=== PATIENT | male | born 2000 | race Caucasian/White ===

== ENCOUNTER 2020-07-23 08:46 | Inpatient (IN) | payer BC ==
[2020-07-23] MEDS ORDERED: ONDANSETRON 4 MG TAB.RAPDIS PO ONE (09:06)
[2020-07-23] MEDS ORDERED: ACETAMINOPHEN 325 MG TABLET PO ONE (09:06)
[2020-07-23] MEDS ORDERED: ONDANSETRON HCL INJ/PF 4 MG/2 ML SDV IV ONE (09:21)
[2020-07-23] MEDS ORDERED: MORPHINE SULFATE 10 MG/ML INJ IV ONE ×2 (09:21→11:09)
[2020-07-23] MEDS ORDERED: NORMAL SALINE 1000 ML 1,000 ML IV ONE (09:21)
[2020-07-23] MEDS ORDERED: PIPERACILLIN/TAZOBACTAM 3.375 GM VIAL IV ONE (09:22)
[2020-07-23 09:47] LABS: HEMATOCRIT 36.6 % (37.9-51.0); HEMOGLOBIN 13.5 g/dL (13.5-17.0); MEAN CORPUSCULAR HGB CONC 36.8 g/dL (32.0-36.0); MEAN CORPUSCULAR VOLUME 87 fl (80-97); PLATELET COUNT 159 10^3/uL (150-450); RED BLOOD COUNT 4.21 10^6/uL (4.35-5.55); RED CELL DISTRIBUTION WIDTH 12.1 % (11.5-14.0)
[2020-07-23 10:03] LABS: ALBUMIN 4.2 g/dL (3.5-5.0); ALKALINE PHOSPHATASE 100 U/L (38-126); ANION GAP 12 (5-19); ASPARTATE AMINO TRANSFERASE 20 U/L (17-59); BILIRUBIN,DIRECT 0.6 mg/dL (0.0-0.4); BILIRUBIN,TOTAL 2.7 mg/dL (0.2-1.3); BLOOD UREA NITROGEN 15 mg/dL (7-20); CALCIUM 8.6 mg/dL (8.4-10.2); CARBON DIOXIDE 25 mmol/L (22-30); CHLORIDE 91 mmol/L (98-107); GLUCOSE 145 mg/dL (75-110); POTASSIUM 3.3 mmol/L (3.6-5.0)
[2020-07-23] MEDS ORDERED: RINGERS SOLUTION,LACTATED 1,000 ML IV ONE (10:08)
--- NOTE | 2020-07-23 10:08 | ER Document Report ---
Entered by BOSSMAN GARNER SCRIBE 07/23/20920 Acting as scribe for:ANTONIO PHILIP MD ED GI/ - General Chief Complaint: Nausea/Vomiting Stated Complaint: NAUSEA,VOMITING,DIARRHEA Time Seen by Provider: 07/23/20 09:08 Mode of Arrival: Wheelchair Information source: Patient Notes: This 20 year old male patient with no significant past medical or surgical history presents to the ED today with complaints of abdominal pain that started x2 days ago. Patient states that the pain initially started in the epigastrium and is now in the RLQ. He describes the pain as a "nonstop intense achy pulling" sensation and 5/5 in severity. He reports that the nausea and vomiting started Tuesday night and the diarrhea started yesterday. He also notes a fever. Per nursing, patient's father tested positive for COVID today and x3 other family members with fever and cough were tested yesterday with results pending. - Related Data Allergies/Adverse Reactions: No Known Allergies Allergy (Unverified 07/23/20 09:07) Past Medical History - General Information source: Patient - Social History Smoking Status: Never Smoker Cigarette use (# per day): No Chew tobacco use (# tins/day): No Smoking Education Provided: No Frequency of alcohol use: Weekends Drug Abuse: None Occupation: EMT with [employer] Lives with: Family Family History: Reviewed & Not Pertinent Patient has homicidal ideation: No - Medical History Medical History: Negative Surgical Hx: Negative Review of Systems - Review of Systems Constitutional: See HPI, Fever EENT: No symptoms reported Cardiovascular: No symptoms reported Respiratory: No symptoms reported Gastrointestinal: See HPI, Abdominal pain, Diarrhea, Nausea, Vomiting Genitourinary: No symptoms reported Male Genitourinary: No symptoms reported Musculoskeletal: No symptoms reported Skin: No symptoms reported Hematologic/Lymphatic: No symptoms reported Neurological/Psychological: No symptoms reported -: Yes All other systems reviewed and negative Physical Exam - Vital signs Vitals: Temp Pulse Resp BP Pulse Ox 100.4 F 120 H 16 127/66 H 96 07/23/20 08:49 07/23/20 08:49 07/23/20 08:49 07/23/20 08:49 07/23/20 08:49 - General General appearance: Alert - HEENT Head: Normocephalic, Atraumatic Eyes: Normal Pupils: PERRL - Respiratory Respiratory status: No respiratory distress Chest status: Nontender Breath sounds: Normal Chest palpation: Normal - Cardiovascular Rhythm: Regular Heart sounds: Normal auscultation Murmur: No - Abdominal Inspection: Normal Distension: No distension Bowel sounds: Hypoactive Tenderness: Tender - Tenderness to palpation of the RLQ. Palpating the LLQ exacerbates the pain in the RLQ., Guarding, Rebound Organomegaly: No organomegaly - Back Back: Normal, Nontender - Extremities General upper extremity: Normal inspection General lower extremity: Normal inspection. No: Edema - Neurological Neuro grossly intact: Yes Orientation: AAOx4 [place] Coma Scale Eye Opening: Spontaneous Tammie Coma Scale Verbal: Oriented Tammie Coma Scale Motor: Obeys Commands [place] Coma Scale Total: 15 - Psychological Associated symptoms: Normal affect, Normal mood - Skin Skin Temperature: Warm Skin Moisture: Dry Skin Color: Normal Course - Re-evaluation Re-evalutation: 07/23/20 12:54 The patient was evaluated during the global COVID-19 pandemic and that diagnosis was suspected/considered upon their initial presentation. Their evaluation, treatment and testing was consistent with current guidelines for patients who present with complaints or symptoms that may be related to COVID-19. - Vital Signs Vital signs: Temp Pulse Resp BP Pulse Ox 100.4 F 120 H 16 127/66 H 96 07/23/20 08:49 07/23/20 08:49 07/23/20 08:49 07/23/20 08:49 07/23/20 08:49 - Laboratory Results Result Diagrams: 07/23/20 09:22 07/23/20 09:22 Laboratory Results Interpreted: 07/23/20 07/23/20 09:22 09:22 WBC 1.5 L* RBC 4.21 L Hct 36.6 L MCHC 36.8 H Band Neutrophils % 2 L Monocytes % (Manual) 2 L Abs Neuts (Manual) 1.2 L Abs Lymphs (Manual) 0.3 L Abs Monocytes (Manual) 0.0 L Sodium 128.4 L Potassium 3.3 L Chloride 91 L Glucose 145 H Total Bilirubin 2.7 H Direct Bilirubin 0.6 H Critical Laboratory Results Reviewed: No Critical Results - Radiology Results Radiology Results Interpreted: 07/23/20 14:33 Acute appendicitis Critical Radiology Results Reviewed: Yes Attending or Supervising Physician who Reviewed Radiology: ANTONIO PHILIP - Consults Dr. Jenkins Time consulted: 14:30 Consulted provider: will come to ER Discharge - Discharge Clinical Impression: Appendicitis Qualifiers: Appendicitis type: acute appendicitis Acute appendicitis type: with localized peritonitis Appendicitis gangrene presence: unspecified whether gangrene present Appendicitis perforation presence: unspecified whether perforation present Appendicitis abscess presence: unspecified whether abscess present Qualified Code(s): K35.30 - Acute appendicitis with localized peritonitis, without perforation or gangrene Condition: Stable Disposition: ADMITTED INPATIENT Admitting Provider: Surgicalist Unit Admitted: OR I personally performed the services described in the documentation, reviewed and edited the documentation which was dictated to the scribe in my presence, and it accurately records my words and actions.
[2020-07-23 10:41] LABS: WHITE BLOOD COUNT 1.5 10^3/uL (4.0-10.5)
[2020-07-23 10:48] LABS: ABSOLUTE LYMPHOCYTES# (MANUAL) 0.3 10^3/uL (0.5-4.7); BAND NEUTROPHILS % (MANUAL) 2 % (3-5); BASOPHILS % (MANUAL) 0 % (0-2); EOSINOPHILS % (MANUAL) 2 % (0-6); LYMPHOCYTES % (MANUAL) 18 % (13-45); MONOCYTES % (MANUAL) 2 % (3-13); NUCLEATED RED BLOOD CELLS 2 /100 WBC (0); SEGMENTED NEUTROPHILS % (MAN) 76 % (42-78); TOTAL CELLS COUNTED 50
[2020-07-23 10:49] LABS: PLATELET COMMENT ADEQUATE; PLATELET GIANT PRESENT; PLATELET LARGE PRESENT; RBC MORPHOLOGY COMMENT NORMO-CYTIC/CHROMIC
[2020-07-23 13:37] LABS: PATH REVIEW PATHOLOGIST REVIEWED
[2020-07-23] MEDS ORDERED: NEOSTIGMINE METHYLSULFATE 10 MG/10 ML VIAL ONE (14:26)
[2020-07-23] MEDS ORDERED: PHENYLEPHRINE HCL INJ/PF 10 MG/1 ML SDV ONE (14:26)
[2020-07-23] MEDS ORDERED: SUCCINYLCHOLINE CHLORIDE INJ 200 MG/10 ML VIAL ONE (14:26)
[2020-07-23] MEDS ORDERED: ONDANSETRON HCL INJ/PF 4 MG/2 ML SDV ONE (14:26)
[2020-07-23] MEDS ORDERED: DEXAMETHASONE SOD PHOSPHATE INJ 4 MG/1 ML VIAL ONE (14:26)
[2020-07-23] MEDS ORDERED: ROCURONIUM BROMIDE INJ 50 MG/5 ML VIAL IV ONE (14:26)
[2020-07-23] MEDS ORDERED: GLYCOPYRROLATE 1 MG/5 ML VIAL ONE (14:26)
--- NOTE | 2020-07-23 14:44 | RADIOLOGY REPORT (SQ) ---
EXAM DESCRIPTION: CT ABD/PELVIS WITH IV ORAL IMAGES COMPLETED DATE/TIME: 07/23/2020 2:33 pm REASON FOR STUDY: RLQ abd pain,Covid, neutropenia COMPARISON: None. TECHNIQUE: CT scan of the abdomen and pelvis performed using helical scanning technique with dynamic intravenous contrast injection. No oral contrast. Images reviewed with lung, soft tissue, and bone windows. Reconstructed coronal and sagittal MPR images reviewed. Delayed images for evaluation of the urinary system also acquired. All images stored on PACS. All CT scanners at this facility use dose modulation, iterative reconstruction, and/or weight based d osing when appropriate to reduce radiation dose to as low as reasonably achievable (ALARA). [facility]: Dose Right [facility]: CareDose [facility]: Dose Right [facility]: Teradose 4D [facility]: Swipely CONTRAST TYPE AND DOSE: contrast/concentration: Isovue 350.00 mmol/ml; Total Contrast Delivered: 83. 0 ml; Total Saline Delivered: 63.8 ml RENAL FUNCTION: BUN 15, creatinine 0.91 RADIATION DOSE: CT Rad equipment meets quality standard of care and radiation dose reduction techniq ues were employed. CTDIvol: 5.6 - 7.3 mGy. DLP: 729 mGy-cm.. LIMITATIONS: None. FINDINGS: LOWER CHEST: Basilar airspace disease most likely atelectasis. LIVER: Mild nonspecific periportal edema. No other significant findings in the liver. SPLEEN: Normal size. No focal lesions. PANCREAS: No masses. No significant calcifications. No adjacent inflammation or peripancreatic fluid collections. Pancreatic duct not dilated. GALLBLADDER: Large gallstone. Possibly pericholecystic edema. Ultrasound is recommended for correla tion at some point. ADRENAL GLANDS: No significant masses or asymmetry. RIGHT KIDNEY AND URETER: No solid masses. Small right renal cyst. No significant calcifications. No hydronephrosis or hydroureter. LEFT KIDNEY AND URETER: No solid masses. No significant calcifications. No hydronephrosis or hydr oureter. AORTA AND VESSELS: No aneurysm. No dissection. Renal arteries, SMA, celiac without stenosis. RETROPERITONEUM: No retroperitoneal adenopathy, hemorrhage or masses. BOWEL AND PERITONEAL CAVITY: Mild distal small bowel wall thickening most likely related to what appe ars to be acute pancreatitis. The small bowel wall thickening is most likely reactive. Slight thick ening of the cecal wall is also noted. APPENDIX: Dilated appendix with periappendiceal inflammatory changes. Findings are consistent with a ppendicitis. Probable appendicolith at the base of the appendix. PELVIS: Free fluid the pelvis. ABDOMINAL WALL: No masses. No hernias. BONES: No significant or acute findings. OTHER: No other significant finding. IMPRESSION: Probable acute appendicitis with markedly dilated appendix and surrounding inflammatory change. Probable reactive distal small bowel wall thickening and cecal wall thickening. Probable gallstone although gallbladder wall thickening or pericholecystic edema cannot be excluded. Correlation with ultrasound is recommended. Mild periportal edema etiology of this is uncertain. Again ultrasound correlation is recommended. TECHNICAL DOCUMENTATION: JOB ID: [id number] Quality ID # [id number]: Final reports with documentation of one or more dose reduction techniques (e.g., Au tomated exposure control, adjustment of the mA and/or kV according to patient size, use of iterative reconstruction technique) 2010 [employer]- All Rights Reserved Reading location - IP/workstation name: [email or web address]
[2020-07-23] MEDS ORDERED: CEFOXITIN INJ 2 GM VIAL IV STA (15:20)
--- NOTE | 2020-07-23 15:20 | PDOC H&P ---
History of Present Illness Admission Date/PCP: 07/23/20 14:41 History of Present Illness: KSENIA SAMAYOA is a 20 year old male, healthy, with a history of epigastric pain for the past 4 days which then shifted to the middle lower abdomen the right lower quadrant. Intense nausea, anorexia, no fever, normal bowel function and urination. A CT scan abdomen pelvis has been done which reveals an enlarged inflamed appendix with periappendiceal inflammation. Social History Lives with: Family Smoking Status: Never Smoker Electronic Cigarette use?: No Family History Family History: Reviewed & Not Pertinent Parental Family History Reviewed: No Children Family History Reviewed: No Sibling(s) Family History Reviewed.: No Medication/Allergy Allergies/Adverse Reactions: No Known Allergies Allergy (Unverified 07/23/20 09:07) Physical Exam Vital Signs: Temp Pulse Resp BP Pulse Ox 100.4 F 120 H 16 127/66 H 96 07/23/20 08:49 07/23/20 08:49 07/23/20 08:49 07/23/20 08:49 07/23/20 08:49 Intake & Output 07/22/20 07/23/20 07/24/20 06:59 06:59 06:59 Intake Total 1999 Balance 1999 Weight 72.575 kg General appearance: PRESENT: no acute distress, thin Eye exam: PRESENT: EOMI Mouth exam: PRESENT: neck supple Neck exam: PRESENT: full ROM Respiratory exam: PRESENT: clear to auscultation tejinder Cardiovascular exam: PRESENT: RRR GI/Abdominal exam: PRESENT: soft, tenderness - The lower middle and right lower quadrant with rebound and guarding Rectal exam: PRESENT: deferred Extremities exam: PRESENT: full ROM Musculoskeletal exam: PRESENT: full ROM Neurological exam: PRESENT: alert, awake, CN II-XII grossly intact Skin exam: PRESENT: warm Results Laboratory Results: 07/23/20 09:22 07/23/20 09:22 07/23/20 07/23/20 09:22 09:22 WBC 1.5 L* RBC 4.21 L Hgb 13.5 Hct 36.6 L MCV 87 MCH 32.0 MCHC 36.8 H RDW 12.1 Plt Count 159 Seg Neutrophils % Not Reportable Sodium 128.4 L Potassium 3.3 L Chloride 91 L Carbon Dioxide 25 Anion Gap 12 BUN 15 Creatinine 0.91 Est GFR ( Amer) > 60 Glucose 145 H Calcium 8.6 Total Bilirubin 2.7 H AST 20 Alkaline Phosphatase 100 Total Protein 7.0 Albumin 4.2 Impressions: Abdomen/Pelvis CT 07/23/20 11:20 IMPRESSION: Probable acute appendicitis with markedly dilated appendix and surrounding inflammatory change. Probable reactive distal small bowel wall thickening and cecal wall thickening. Probable gallstone although gallbladder wall thickening or pericholecystic edema cannot be excluded. Correlation with ultrasound is recommended. Mild periportal edema etiology of this is uncertain. Again ultrasound correlation is recommended. Assessment & Plan - Diagnosis (1) Appendicitis Qualifiers: Appendicitis type: acute appendicitis Acute appendicitis type: with localized peritonitis Appendicitis gangrene presence: without gangrene Appendicitis perforation presence: without perforation Appendicitis abscess presence: without abscess Qualified Code(s): K35.30 - Acute appendicitis with localized peritonitis, without perforation or gangrene - Time Anticipated Discharge Disposition: Home, Self Care Anticipated Discharge Timeframe: within 48 hours - Plan Summary Plan Summary: Assessment: Right lower quadrant pain The scan abdomen pelvis significant for enlarged appendix with periappendiceal fluid visible acute appendicitis without perforation Low white blood cell count 1.5S with possible viral infection The patient reports that both father and mother have COVID-19 and both are home and not very secretory disease Plan: N.p.o. IV fluids Mefoxin 2 g IV piggyback now Stat COVID-19 rapid test Laparoscopic appendectomy possible open. The procedure, risks, benefits, complications, alternatives, explained to the patient including the possibility of bowel injury, infection, and bleeding has been explained to the patient, he understands all the above, his questions were answered to his satisfaction, and he decides to proceed.
[2020-07-23] MEDS ORDERED: DEXTROSE 40% GEL 15 GM TUBE PO PRN ×2 (15:21)
[2020-07-23] MEDS ORDERED: DEXTROSE 50%-WATER 25 GM/50 ML DISP.SYRIN IV PRN ×2 (15:21)
[2020-07-23] MEDS ORDERED: GLUCAGON,HUMAN RECOMB 1 MG INJ SUBCUT PRN (15:21)
[2020-07-23] MEDS ORDERED: BUPIVACAINE HCL 0.5%-EPI 1:200000 INJ/PF 30 ML VIAL ONE (15:24)
[2020-07-23] MEDS ORDERED: MIDAZOLAM 2 MG/2 ML INJ ONE (15:26)
[2020-07-23] MEDS ORDERED: FENTANYL CITRATE INJ/PF 250 MCG/5 ML AMPULE ONE (15:26)
[2020-07-23] MEDS ORDERED: HYDROMORPHONE HCL INJ/PF 2 MG/ML AMPULE ONE (15:27)
[2020-07-23] MEDS ORDERED: PROPOFOL INJ 200 MG/20 ML VIAL IV ONE (15:27)
[2020-07-23] MEDS ORDERED: DIPHENHYDRAMINE HCL 50 MG/ML VIAL IV PRN (16:41)
[2020-07-23] MEDS ORDERED: MORPHINE SULFATE 10 MG/ML INJ IV PRN (16:41)
[2020-07-23] MEDS ORDERED: FENTANYL CITRATE INJ/PF 100 MCG/2 ML AMPUL IV PRN ×3 (16:41)
[2020-07-23] MEDS ORDERED: MEPERIDINE HCL/PF INJ 25 MG/1 ML DISP.SYRIN IV PRN (16:41)
[2020-07-23] MEDS ORDERED: PROMETHAZINE HCL INJ 25 MG/1 ML VIAL IV PRN (16:41)
--- NOTE | 2020-07-23 17:39 | Operative Report ---
Operative Report DATE OF SURGERY: 07/23/20 PREOPERATIVE DIAGNOSIS: acute appendicitis POSTOPERATIVE DIAGNOSIS: Acute perforated appendicitis OPERATION: Laparoscopic appendectomy SURGEON: RAQUEL FLORES ANESTHESIA: GA - 10 mL 1% lidocaine with epinephrine TISSUE REMOVED OR ALTERED: Appendix with small sleeve of the cecum COMPLICATIONS: None ESTIMATED BLOOD LOSS: Negligible INTRAOPERATIVE FINDINGS: Acute perforated appendicitis with spillage of pus in the lower abdomen PROCEDURE: The procedure was done in the operating room. The patient was placed in a supine position, general anesthesia induced by endotracheal intubation, Baker catheter was inserted, the abdomen was prepped and draped in usual fashion. An incision was made just above the umbilicus with a #15 blade, the skin was tented with towel clips and a 5 mm port with Optiview adapter and scope were inserted through the abdominal wall into the peritoneal cavity. After they CO2 pneumoperitoneum was obtained, under direct visualization a 5 mm report was inserted in the right lateral quadrant of the abdomen following skin incision. The scope was removed from the umbilical port and inserted into the right side port. The 5 mm umbilical port was removed and replaced with a 12 mm port, while the 5 mm port was inserted in left lower quadrant of the abdomen following skin incision. The patient was placed in steep Trendelenburg position with the right side elevated. The appendix was then identified by tracing the anterior tenia of the cecum, the appendix was then found inflamed, covered with fibrinous material, and perforated due to the presence of purulent material seen in the pelvis and around the appendix. The appendix was elevated, and stretched. The mesentery of the appendix was divided with the LigaSure. The appendix was found to be [non-perforated]. The appendix was stapled at the base with an Endo TARSHA stapler, extracted from the peritoneal cavity with an Endobag through the umbilical port. The pneumoperitoneum was then re-established, the stapled line was examined and found to be intact. The right lower quadrant was then irrigated with normal saline until clear. A 19 mm Arabic round Claudio drain was inserted through the umbilical port and extracted from the left lower quadrant abdominal port; it was placed in the right lower quadrant. The drain was then secured to the skin with a 2-0 nylon suture. The umbilical fascial defect was closed with a [id number] 0 Vicryl suture, placed with a fascia closure device under direct visualization and left untied. All instruments were removed, the pneumoperitoneum was released, and all ports were removed. The umbilical fascial defect was closed with the previously placed [id number] 0 Vicryl suture, all skin incisions were closed with a 4-0 PDS running subcuticular suture, and covered with Dermabond. The patient tolerated the procedure well, was extubated, and transferred to the recovery room in satisfactory conditions.
[2020-07-23] MEDS ORDERED: PIPERACILLIN/TAZOBACTAM 3.375 GM VIAL IV SCH (18:00)
--- NOTE | 2020-07-23 18:32 | RADIOLOGY REPORT (SQ) ---
EXAM DESCRIPTION: CHEST SINGLE VIEW IMAGES COMPLETED DATE/TIME: 07/23/2020 6:17 pm REASON FOR STUDY: Covid positive patient, s/p appendectomy COMPARISON: None. EXAM PARAMETERS: NUMBER OF VIEWS: One view. TECHNIQUE: Single frontal radiographic view of the chest acquired. RADIATION DOSE: NA LIMITATIONS: None. FINDINGS: LUNGS AND PLEURA: No opacities, masses or pneumothorax. No pleural effusion. MEDIASTINUM AND HILAR STRUCTURES: No masses. Contour normal. HEART AND VASCULAR STRUCTURES: Heart normal in size. Normal vasculature. BONES: No acute findings. HARDWARE: None in the chest. OTHER: No other significant finding. IMPRESSION: NO ACUTE RADIOGRAPHIC FINDING IN THE CHEST. TECHNICAL DOCUMENTATION: JOB ID: [id number] 2010 [employer]- All Rights Reserved Reading location - IP/workstation name: [email or web address]
--- NOTE | 2020-07-23 20:44 | PDOC CONSULTATION ---
Consultation Consult Date: 07/23/20 Attending physician:: RAQUEL FLORES Provider Consulted: MICHAEL LOCKWOOD Consult reason:: COVID + History of Present Illness Admission Date/PCP: 07/23/20 14:41 Patient complains of: Abdominal pain History of Present Illness: KSENIA COFFMAN is a 20 year old male without significant past medical history who presented to the emergency department today with complaint of progressively worsening right lower quadrant abdominal pain, nausea, vomiting, and inability to tolerate oral fluids that has progressively worsened over the last 4 days. The patient notes that he has also had suprapubic abdominal discomfort with difficulty emptying her bladder. Patient is now s/p laparoscopic appendectomy by Dr. Flores. The hospitalist team was consulted for management of his COVID. Past Medical History Cardiac Medical History: Reports: None Pulmonary Medical History: Reports: None EENT Medical History: Reports: None Neurological Medical History: Reports: None Endocrine Medical History: Reports: None Renal/ Medical History: Reports: None Malignancy Medical History: Reports: None GI Medical History: Reports: None Musculoskeltal Medical History: Reports: None Skin Medical History: Reports: None Psychiatric Medical History: Reports: None Traumatic Medical History: Reports: None Hematology: Reports: None Infectious Medical History: Reports: None Past Surgical History Past Surgical History: Reports: None Social History Information Source: Patient Lives with: Family Smoking Status: Never Smoker Electronic Cigarette use?: No Frequency of Alcohol Use: Occasional Hx Recreational Drug Use: No Hx Prescription Drug Abuse: No - Advance Directive Resuscitation Status: Full Code Surrogate healthcare decision maker:: The patient's mother, Eboni Coffman. Family History Family History: Reviewed & Not Pertinent, Other - Lupus Parental Family History Reviewed: Yes Children Family History Reviewed: NA Sibling(s) Family History Reviewed.: No Medication/Allergy Allergies/Adverse Reactions: No Known Allergies Allergy (Unverified 07/23/20 09:07) Review of Systems Constitutional: PRESENT: anorexia, fatigue. ABSENT: chills, fever(s), headache(s), weight gain, weight loss Eyes: ABSENT: visual disturbances Ears: ABSENT: hearing changes Cardiovascular: ABSENT: chest pain, dyspnea on exertion, edema, orthropnea, palpitations Respiratory: PRESENT: cough. ABSENT: hemoptysis Gastrointestinal: PRESENT: as per HPI, abdominal pain, nausea, vomiting. ABSENT: constipation, diarrhea, hematemesis, hematochezia Genitourinary: ABSENT: dysuria, hematuria Musculoskeletal: ABSENT: joint swelling Integumentary: ABSENT: rash, wounds Neurological: ABSENT: abnormal gait, abnormal speech, confusion, dizziness, focal weakness, syncope Psychiatric: ABSENT: anxiety, depression, homidical ideation, suicidal ideation Endocrine: ABSENT: cold intolerance, heat intolerance, polydipsia, polyuria Hematologic/Lymphatic: ABSENT: easy bleeding, easy bruising Physical Exam Vital Signs: Temp Pulse Resp BP Pulse Ox 98.9 F 104 H 14 106/66 97 07/23/20 18:30 07/23/20 18:30 07/23/20 18:30 07/23/20 18:30 07/23/20 18:30 Intake & Output 07/22/20 07/23/20 07/24/20 06:59 06:59 06:59 Intake Total 4000 Output Total 85 Balance 3915 Weight 72.575 kg General appearance: PRESENT: no acute distress, cooperative, well-developed, well-nourished Head exam: PRESENT: atraumatic, normocephalic Eye exam: PRESENT: conjunctiva pink, EOMI, PERRLA. ABSENT: scleral icterus Mouth exam: PRESENT: moist, tongue midline Neck exam: ABSENT: carotid bruit, JVD, lymphadenopathy, thyromegaly Respiratory exam: PRESENT: clear to auscultation tejinder, symmetrical, unlabored, other - room air. ABSENT: rales, rhonchi, wheezes Cardiovascular exam: PRESENT: RRR. ABSENT: diastolic murmur, rubs, systolic murmur Pulses: PRESENT: normal dorsalis pedis pul Vascular exam: PRESENT: normal capillary refill GI/Abdominal exam: PRESENT: normal bowel sounds, soft, tenderness. ABSENT: distended, guarding, mass, organolmegaly, rebound Rectal exam: PRESENT: deferred Extremities exam: PRESENT: full ROM. ABSENT: calf tenderness, clubbing, pedal edema Neurological exam: PRESENT: alert, awake, oriented to person, oriented to place, oriented to time, oriented to situation, CN II-XII grossly intact. ABSENT: motor sensory deficit Psychiatric exam: PRESENT: appropriate affect, normal mood. ABSENT: homicidal ideation, suicidal ideation Skin exam: PRESENT: dry, intact, pallor, warm. ABSENT: cyanosis, rash Results Laboratory Results: 07/23/20 09:22 07/23/20 09:22 07/23/20 07/23/20 09:22 09:22 WBC 1.5 L* RBC 4.21 L Hgb 13.5 Hct 36.6 L MCV 87 MCH 32.0 MCHC 36.8 H RDW 12.1 Plt Count 159 Seg Neutrophils % Not Reportable Sodium 128.4 L Potassium 3.3 L Chloride 91 L Carbon Dioxide 25 Anion Gap 12 BUN 15 Creatinine 0.91 Est GFR ( Amer) > 60 Glucose 145 H Calcium 8.6 Total Bilirubin 2.7 H AST 20 Alkaline Phosphatase 100 Total Protein 7.0 Albumin 4.2 Impressions: Abdomen/Pelvis CT 07/23/20 11:20 IMPRESSION: Probable acute appendicitis with markedly dilated appendix and surrounding inflammatory change. Probable reactive distal small bowel wall thickening and cecal wall thickening. Probable gallstone although gallbladder wall thickening or pericholecystic edema cannot be excluded. Correlation with ultrasound is recommended. Mild periportal edema etiology of this is uncertain. Again ultrasound correlat ion is recommended. Chest X-Ray 07/23/20 17:48 IMPRESSION: NO ACUTE RADIOGRAPHIC FINDING IN THE CHEST. Assessment and Plan - Diagnosis (1) COVID-19 Is this a current diagnosis for this admission?: Yes Plan: Currently asymptomatic. COVID positive D-dimer, ferritin, CRP, LDH not checked as all will be elevated in setting of acute appendicitis. Continue DVT prophylaxis Lovenox as was initiated by surgery. Provide supplemental oxygen as needed maintain saturations greater than 89%. As needed nebulizer treatments. Once tolerating oral medications, will utilize [facility]+ protocol for Ivermectin, zinc, vitamin D, vitamin C, and melatonin supplementation. Hold on steroids r/t appendicitis. Encourage pulmonary toilet. Isolation precautions. (2) Hyponatremia Is this a current diagnosis for this admission?: Yes Plan: Likely secondary to dehydration. Continue IV fluids. Follow-up chemistry. (3) Hypokalemia Is this a current diagnosis for this admission?: Yes Plan: Secondary to poor oral intake and GI losses. IV replacement. Follow-up chemistry. (4) Hyperglycemia Is this a current diagnosis for this admission?: Yes Plan: Unclear etiology; patient states that he had been n.p.o. for several hours with minimal intake earlier this morning. Possibly related to acute infectious process. A1c with a.m. labs. (5) Sepsis Qualifiers: Sepsis type: sepsis due to unspecified organism Severe sepsis shock status: without septic shock Is this a current diagnosis for this admission?: Yes Plan: Multifactorial secondary to acute appendicitis and COVID-19. Sepsis, present on arrival, evidenced by fever, tachycardia, tachypnea, leuko penia, liver dysfunction with elevated bilirubin, and poor capillary refill/mottled appearance. Lactic acid pending. Patient has already received IV fluid resuscitation by ED provider. Blood cultures pending. Continue IV Zosyn. Continuing on maintenance fluids. (6) Appendicitis Qualifiers: Appendicitis type: acute appendicitis Is this a current diagnosis for this admission?: Yes Plan: s/p Appendectomy Plan per surgery (7) Leukopenia Qualifiers: Leukopenia type: lymphocytopenia Qualified Code(s): D72.810 - Lymphocytope aurelia Is this a current diagnosis for this admission?: Yes Plan: WBC 1.5 Absolute neutrophil count 1.2. Likely secondary to sepsis related to acute appendicitis and COVID 19. Patient denies hx of same. Further denies prior malignancy or immune defficiency illnesses. Will check HIV w/ am lab work. Cultures and antibiotics as above. Follow CBC. Hematology consultation if does not improve w/ resolution of sepsis. - Plan Summary Summary: Update provided to patient's parents by phone. All questions answered. - Time Time Spent with patient: 35 or more minutes Medications reviewed and adjusted accordingly: Yes Anticipated Discharge Disposition: Home, Self Care Anticipated Discharge Timeframe: TBD
[2020-07-23] MEDS: PIPERACILLIN SODIUM/TAZOBACTAM 3.375 GM in NORMAL SALINE 100 ML IV SCH (21:59)
[2020-07-23] MEDS: NORMAL SALINE 1000 ML 1,000 ML IV PRN (21:59)
[2020-07-23] MEDS: POTASSI CL 20 MEQ/50 ML RIDER 20 MEQ/50 ML RTUPB IV SCH (21:59)
[2020-07-23] MEDS: FAMOTIDINE INJ/PF 20 MG/2 ML SDV IV SCH (21:59)
[2020-07-23] MEDS: DOCUSATE SODIUM 100 MG/10 ML UDC PO SCH (21:59)
[2020-07-23 22:05] LABS: ANION GAP 6 (5-19); BLOOD UREA NITROGEN 13 mg/dL (7-20); CALCIUM 7.7 mg/dL (8.4-10.2); CARBON DIOXIDE 29 mmol/L (22-30); CHLORIDE 97 mmol/L (98-107); GLUCOSE 113 mg/dL (75-110); POTASSIUM 3.8 mmol/L (3.6-5.0)
[2020-07-23] MEDS: MORPHINE SULFATE 10 MG/ML INJ IV PRN (23:47)
[2020-07-23] MEDS: KETOROLAC TROMETHAMINE INJ/PF 30 MG/1 ML SDV IV SCH (23:48)
[2020-07-24] MEDS ORDERED: ACETAMINOPHEN 2,000 MG/200 ML RTUPB IV ONE (00:49)
[2020-07-24] MEDS: ACETAMINOPHEN 1,000 MG/100 ML RTUPB IV SCH ×2 (00:59→06:47)
[2020-07-24] MEDS: POTASSI CL 20 MEQ/50 ML RIDER 20 MEQ/50 ML RTUPB IV SCH (01:18)
[2020-07-24] MEDS: PIPERACILLIN SODIUM/TAZOBACTAM 3.375 GM in NORMAL SALINE 100 ML IV SCH ×4 (04:01→22:00)
[2020-07-24] MEDS: KETOROLAC TROMETHAMINE INJ/PF 30 MG/1 ML SDV IV SCH ×3 (06:47→18:11)
[2020-07-24 06:51] LABS: ALBUMIN 2.8 g/dL (3.5-5.0); ALKALINE PHOSPHATASE 47 U/L (38-126); ANION GAP 7 (5-19); ASPARTATE AMINO TRANSFERASE 18 U/L (17-59); BILIRUBIN,DIRECT 3.2 mg/dL (0.0-0.4); BILIRUBIN,TOTAL 4.3 mg/dL (0.2-1.3); BLOOD UREA NITROGEN 13 mg/dL (7-20); CALCIUM 7.6 mg/dL (8.4-10.2); CARBON DIOXIDE 28 mmol/L (22-30); CHLORIDE 102 mmol/L (98-107); GLUCOSE 103 mg/dL (75-110); POTASSIUM 4.4 mmol/L (3.6-5.0); TOTAL PROTEIN 5.2 g/dL (6.3-8.2)
[2020-07-24 06:55] LABS: HEMATOCRIT 32.4 % (37.9-51.0); HEMOGLOBIN 11.6 g/dL (13.5-17.0); MEAN CORPUSCULAR HEMOGLOBIN 31.2 pg (27.0-33.4); MEAN CORPUSCULAR HGB CONC 35.9 g/dL (32.0-36.0); MEAN CORPUSCULAR VOLUME 87 fl (80-97); PLATELET COUNT 134 10^3/uL (150-450); RED BLOOD COUNT 3.73 10^6/uL (4.35-5.55); RED CELL DISTRIBUTION WIDTH 12.4 % (11.5-14.0)
[2020-07-24 07:25] LABS: ABSOLUTE LYMPHOCYTES# (MANUAL) 0.2 10^3/uL (0.5-4.7); ABSOLUTE MONOCYTES # (MANUAL) 0.3 10^3/uL (0.1-1.4); BASOPHILS % (MANUAL) 1 % (0-2); EOSINOPHILS % (MANUAL) 0 % (0-6); LYMPHOCYTES % (MANUAL) 2 % (13-45); MONOCYTES % (MANUAL) 3 % (3-13); SEGMENTED NEUTROPHILS % (MAN) 79 % (42-78); TOTAL CELLS COUNTED 100
[2020-07-24 07:28] LABS: BURR CELLS SLIGHT; OVALOCYTES SLIGHT; POIKILOCYTOSIS SLIGHT; TOXIC GRANULATION SLIGHT
[2020-07-24 07:29] LABS: PLATELET COMMENT DECREASED; WHITE BLOOD COUNT 10.6 10^3/uL (4.0-10.5)
[2020-07-24 07:30] LABS: BAND NEUTROPHILS % (MANUAL) 15 % (3-5)
--- NOTE | 2020-07-24 10:14 | PDOC PROGRESS REPORT ---
Subjective Date:: 07/24/20 Reason For Visit: APPENDICITIS Patient tolerating clear liquids; drain put out 90 cc overnight. Patient being treated for Covid with [facility]+ protocol Physical Exam Vital Signs: Temp Pulse Resp BP Pulse Ox 98.0 F 84 18 96/42 L 97 07/24/20 04:00 07/24/20 04:00 07/24/20 04:00 07/24/20 04:00 07/24/20 04:00 Intake & Output 07/23/20 07/24/20 07/25/20 06:59 06:59 06:59 Intake Total 4150 Output Total 1900 Balance 2250 Weight 73.6 kg General appearance: PRESENT: no acute distress, other - Mask installed GI/Abdominal exam: PRESENT: other - Appropriately tender; serosanguinous drainage from drain. Abdomen otherwise benign. Results Laboratory Results: 07/24/20 06:04 07/24/20 06:04 07/23/20 07/23/20 07/23/20 09:22 21:10 21:10 WBC 1.5 L* RBC 4.21 L Hgb 13.5 Hct 36.6 L MCV 87 MCH 32.0 MCHC 36.8 H RDW 12.1 Plt Count 159 Seg Neutrophils % Not Reportable Sodium 132.3 L Potassium 3.8 Chloride 97 L Carbon Dioxide 29 Anion Gap 6 BUN 13 Creatinine 0.93 Est GFR ( Amer) > 60 Glucose 113 H Lactic Acid 2.3 H Calcium 7.7 L Total Bilirubin AST Alkaline Phosphatase Total Protein Albumin TSH 07/24/20 07/24/20 07/24/20 06:04 06:04 06:04 WBC 10.6 H D RBC 3.73 L Hgb 11.6 L Hct 32.4 L MCV 87 MCH 31.2 MCHC 35.9 RDW 12.4 Plt Count 134 L Seg Neutrophils % Not Reportable Sodium 136.9 L Potassium 4.4 Chloride 102 Carbon Dioxide 28 Anion Gap 7 BUN 13 Creatinine 0.90 Est GFR ( Amer) > 60 Glucose 103 Lactic Acid Calcium 7.6 L Total Bilirubin 4.3 H AST 18 Alkaline Phosphatase 47 Total Protein 5.2 L Albumin 2.8 L TSH 0.06 L 07/24/20 06:04 WBC RBC Hgb Hct MCV MCH MCHC RDW Plt Count Seg Neutrophils % Sodium Potassium Chloride Carbon Dioxide Anion Gap BUN Creatinine Est GFR ( Amer) Glucose Lactic Acid 1.3 Calcium Total Bilirubin AST Alkaline Phosphatase Total Protein Albumin TSH Impressions: Abdomen/Pelvis CT 07/23/20 11:20 IMPRESSION: Probable acute appendicitis with markedly dilated appendix and surrounding inflammatory change. Probable reactive distal small bowel wall thickening and cecal wall thickening. Probable gallstone although gallbladder wall thickening or pericholecystic edema cannot be excluded. Correlation with ultrasound is recommended. Mild periportal edema etiology of this is uncertain. Again ultrasound correlation is recommended. Chest X-Ray 07/23/20 17:48 IMPRESSION: NO ACUTE RADIOGRAPHIC FINDING IN THE CHEST. Assessment & Plan - Diagnosis (1) Appendicitis Qualifiers: Appendicitis type: acute appendicitis Is this a current diagnosis for this admission?: Yes Plan: Impression: Doing well 1 day postop laparoscopic appendectomy for acute appendic itis with suppuration possible perforation, on IV antibiotics; being treated for acute Covid infection [facility] protocol Recommendations: 1. Continue IV antibiotics, leave drain in 2. We will advance diet as tolerated 3. Continue Covid therapy (2) COVID-19 Is this a current diagnosis for this admission?: Yes (3) Hyponatremia Is this a current diagnosis for this admission?: Yes (4) Sepsis Qualifiers: Sepsis type: sepsis due to unspecified organism Severe sepsis shock status: without septic shock - Time Anticipated Discharge Disposition: Home, Self Care Anticipated Discharge Timeframe: tbd
[2020-07-24] MEDS: ENOXAPARIN SODIUM INJ 40 MG/0.4 ML DISP.SYRIN SUBCUT SCH (10:23)
[2020-07-24] MEDS ORDERED: ACETAMINOPHEN 325 MG TABLET PO PRN (10:24)
[2020-07-24] MEDS: FAMOTIDINE INJ/PF 20 MG/2 ML SDV IV SCH ×2 (10:31→22:00)
[2020-07-24] MEDS: DOCUSATE SODIUM 100 MG/10 ML UDC PO SCH ×2 (10:31→10:58)
[2020-07-24] MEDS: NORMAL SALINE 1000 ML 1,000 ML IV PRN (10:59)
[2020-07-24] MEDS: CHOLECALCIFEROL (D3) 1,000 UNIT (25 MCG) TABLET PO SCH (14:42)
[2020-07-24] MEDS: ZINC SULFATE 220 MG CAPSULE PO SCH (14:42)
[2020-07-24] MEDS: ASCORBIC ACID 500 MG TABLET PO SCH ×2 (14:43→18:11)
--- NOTE | 2020-07-24 15:05 | PDOC PROGRESS REPORT ---
Subjective Date:: 07/24/20 Subjective:: KSENIA SAMAYOA is a 20 year old male without significant past medical history who was admitted 07/23/2020 to the surgical list service for acute appendicitis incidentally found to have COVID-19. Patient was seen on morning rounds. He is found resting in bed, comfortably, on room air. He does continue to have abdominal discomfort with shortness of breath related to abdominal pain. He reports that his nausea and vomiting have resolved. He does complain that he has had difficulty urinating; states that this began the day prior to his admission. Denies dysuria. T-max 100.4 last 24 hours. He denies chest pain, palpitations, dyspnea, orthopnea, cough. He does complain of fatigue but denies generalized weakness, malaise, and body aches. He has no questions or concerns at this time. No concerns per nursing. Reason For Visit: APPENDICITIS Physical Exam Vital Signs: Temp Pulse Resp BP Pulse Ox 98.0 F 84 18 96/42 L 97 07/24/20 04:00 07/24/20 04:00 07/24/20 04:00 07/24/20 04:00 07/24/20 04:00 Intake & Output 07/23/20 07/24/20 07/25/20 06:59 06:59 06:59 Intake Total 5150 100 Output Total 1900 Balance 3250 100 Weight 73.6 kg General appearance: PRESENT: no acute distress, cooperative, well-developed, w ell-nourished Head exam: PRESENT: atraumatic, normocephalic Eye exam: PRESENT: conjunctiva pink, EOMI, PERRLA. ABSENT: scleral icterus Mouth exam: PRESENT: moist, tongue midline Respiratory exam: PRESENT: clear to auscultation tejinder, symmetrical, unlabored. ABSENT: rales, rhonchi, wheezes Cardiovascular exam: PRESENT: RRR. ABSENT: diastolic murmur, rubs, systolic murmur Vascular exam: PRESENT: normal capillary refill GI/Abdominal exam: PRESENT: hypoactive bowel sounds, soft, tenderness. ABSENT: distended, guarding, mass, organolmegaly, rebound Rectal exam: PRESENT: deferred Extremities exam: PRESENT: full ROM. ABSENT: calf tenderness, clubbing, pedal edema Neurological exam: PRESENT: alert, awake, oriented to person, oriented to place, oriented to time, oriented to situation, CN II-XII grossly intact. ABSENT: motor sensory deficit Psychiatric exam: PRESENT: appropriate affect, normal mood. ABSENT: homicidal ideation, suicidal ideation Skin exam: PRESENT: dry, intact, warm. ABSENT: cyanosis, rash Results Laboratory Results: 07/24/20 06:04 07/24/20 06:04 07/23/20 07/23/20 07/24/20 21:10 21:10 06:04 WBC 10.6 H D RBC 3.73 L Hgb 11.6 L Hct 32.4 L MCV 87 MCH 31.2 MCHC 35.9 RDW 12.4 Plt Count 134 L Seg Neutrophils % Not Reportable Sodium 132.3 L Potassium 3.8 Chloride 97 L Carbon Dioxide 29 Anion Gap 6 BUN 13 Creatinine 0.93 Est GFR ( Amer) > 60 Glucose 113 H Lactic Acid 2.3 H Calcium 7.7 L Total Bilirubin AST Alkaline Phosphatase Total Protein Albumin TSH 07/24/20 07/24/20 07/24/20 06:04 06:04 06:04 WBC RBC Hgb Hct MCV MCH MCHC RDW Plt Count Seg Neutrophils % Sodium 136.9 L Potassium 4.4 Chloride 102 Carbon Dioxide 28 Anion Gap 7 BUN 13 Creatinine 0.90 Est GFR ( Amer) > 60 Glucose 103 Lactic Acid 1.3 Calcium 7.6 L Total Bilirubin 4.3 H AST 18 Alkaline Phosphatase 47 Total Protein 5.2 L Albumin 2.8 L TSH 0.06 L Impressions: Abdomen/Pelvis CT 07/23/20 11:20 IMPRESSION: Probable acute appendicitis with markedly dilated appendix and surrounding inflammatory change. Probable reactive distal small bowel wall thickening and cecal wall thickening. Probable gallstone although gallbladder wall thickening or pericholecystic edema cannot be excluded. Correlation with ultrasound is recommended. Mild periportal edema etiology of this is uncertain. Again ultrasound correlation is recommended. Chest X-Ray 07/23/20 17:48 IMPRESSION: NO ACUTE RADIOGRAPHIC FINDING IN THE CHEST. Assessment and Plan - Diagnosis (1) COVID-19 Is this a current diagnosis for this admission?: Yes Plan: Currently asymptomatic. COVID positive D-dimer, ferritin, CRP, LDH not checked as all will be elevated in setting of acute appendicitis. Continue DVT prophylaxis Lovenox as was initiated by surgery. Provide supplemental oxygen as needed maintain saturations greater than 89%. As needed nebulizer treatments. Once tolerating oral medications, will utilize [facility] protocol for Ivermectin 12 mg daily x2 doses with zinc, vitamin D, vitamin C, and melatonin supplementation. Hold on steroids r/t appendicitis. Encourage pulmonary toilet. Isolation precautions. (2) Hyponatremia Is this a current diagnosis for this admission?: Yes Plan: Likely secondary to dehydration. Continue IV fluids. Has been cleared for full liquids. Follow-up chemistry. (3) Hypokalemia Is this a current diagnosis for this admission?: Yes Plan: Resolved. Secondary to poor oral intake and GI losses. Follow-up chemistry. (4) Hyperglycemia Is this a current diagnosis for this admission?: Yes Plan: Likely r/t related to acute infectious process. A1c 4.2 (5) Sepsis Qualifiers: Sepsis type: sepsis due to unspecified organism Severe sepsis shock status: without septic shock Is this a current diagnosis for this admission?: Yes Plan: Improved; WBC trending up, VSS improved, afebrile overnight, lactic acid acidosis is resolved. Multifactorial secondary to acute appendicitis and COVID-19. Sepsis, present on arrival, evidenced by fever, tachycardia, tachypnea, leukopenia, liver dysfunction with elevated bilirubin, and poor capillary refill/mottled appearance. Lactic acid pending. Patient has already received IV fluid resuscitation by ED provider. Blood cultures pending. Continue IV Zosyn. Continuing on maintenance fluids. (6) Appendicitis Qualifiers: Appendicitis type: acute appendicitis Is this a current diagnosis for this admission?: Yes Plan: Impression: Doing well 1 day postop laparoscopic appendectomy for acute appendicitis with suppuration possible perforation, on IV antibiotics; being treated for acute Covid infection [facility] protocol Recommendations: 1. Continue IV antibiotics, leave drain in 2. We will advance diet as tolerated 3. Continue Covid therapy (7) Leukopenia Qualifiers: Leukopenia type: lymphocytopenia Qualified Code(s): D72.810 - L ymphocytopenia Is this a current diagnosis for this admission?: Yes Plan: Resolved; WBC 1.5-> 10.6 Likely secondary to sepsis related to acute appendicitis and COVID 19. Denies prior malignancy or immune defficiency illnesses. HIV negative. Cultures and antibiotics as above. Follow CBC. - Time Time Spent with patient: 25-34 minutes Anticipated Discharge Disposition: Home, Self Care Anticipated Discharge Timeframe: within 72 hours
[2020-07-24] MEDS: DOCUSATE SODIUM 100 MG CAPSULE PO SCH (18:11)
[2020-07-24] MEDS: IVERMECTIN 3 MG TABLET PO SCH (18:12)
[2020-07-24] MEDS: MORPHINE SULFATE 10 MG/ML INJ IV PRN (22:00)
[2020-07-25] MEDS: KETOROLAC TROMETHAMINE INJ/PF 30 MG/1 ML SDV IV SCH ×5 (00:28→23:49)
[2020-07-25] MEDS: PIPERACILLIN SODIUM/TAZOBACTAM 3.375 GM in NORMAL SALINE 100 ML IV SCH ×4 (04:13→20:51)
[2020-07-25] MEDS: NORMAL SALINE 1000 ML 1,000 ML IV PRN ×3 (06:55→22:04)
[2020-07-25 06:56] LABS: ABSOLUTE EOSINOPHILS # (AUTO) 0.1 10^3/uL (0.0-0.6); ABSOLUTE LYMPHOCYTES (AUTO) 0.7 10^3/uL (0.5-4.7); ABSOLUTE MONOCYTES (AUTO) 0.8 10^3/uL (0.1-1.4); ABSOLUTE NEUT (AUTO) 7.8 10^3/uL (1.7-8.2); BASOPHILS % (AUTO) 0.4 % (0-2); EOSINOPHILS % (AUTO) 1.4 % (0-6); HEMATOCRIT 35.1 % (37.9-51.0); HEMOGLOBIN 12.5 g/dL (13.5-17.0); LYMPHOCYTES % (AUTO) 7.8 % (13-45); MEAN CORPUSCULAR HEMOGLOBIN 31.3 pg (27.0-33.4); MEAN CORPUSCULAR HGB CONC 35.6 g/dL (32.0-36.0); MEAN CORPUSCULAR VOLUME 88 fl (80-97); MONOCYTES % (AUTO) 8.5 % (3-13); PLATELET COUNT 151 10^3/uL (150-450); RED BLOOD COUNT 3.99 10^6/uL (4.35-5.55); RED CELL DISTRIBUTION WIDTH 12.6 % (11.5-14.0); SEGMENTED NEUTROPHILS % (AUTO) 81.9 % (42-78); TOTAL CELLS COUNTED % (AUTO) 100 %; WHITE BLOOD COUNT 9.6 10^3/uL (4.0-10.5)
[2020-07-25 07:17] LABS: ALBUMIN 2.9 g/dL (3.5-5.0); ALKALINE PHOSPHATASE 66 U/L (38-126); ANION GAP 7 (5-19); BILIRUBIN,DIRECT 1.2 mg/dL (0.0-0.4); BILIRUBIN,TOTAL 2.1 mg/dL (0.2-1.3); BLOOD UREA NITROGEN 18 mg/dL (7-20); CALCIUM 7.9 mg/dL (8.4-10.2); CARBON DIOXIDE 26 mmol/L (22-30); CHLORIDE 101 mmol/L (98-107); GLUCOSE 90 mg/dL (75-110); TOTAL PROTEIN 5.5 g/dL (6.3-8.2)
[2020-07-25 07:18] LABS: ASPARTATE AMINO TRANSFERASE 23 U/L (17-59)
[2020-07-25] MEDS: DOCUSATE SODIUM 100 MG CAPSULE PO SCH ×2 (09:56→17:09)
[2020-07-25] MEDS: IVERMECTIN 3 MG TABLET PO SCH (09:56)
[2020-07-25] MEDS: ENOXAPARIN SODIUM INJ 40 MG/0.4 ML DISP.SYRIN SUBCUT SCH (09:56)
[2020-07-25] MEDS: CHOLECALCIFEROL (D3) 1,000 UNIT (25 MCG) TABLET PO SCH (09:56)
[2020-07-25] MEDS: ASCORBIC ACID 500 MG TABLET PO SCH ×2 (09:56→17:09)
[2020-07-25] MEDS: ZINC SULFATE 220 MG CAPSULE PO SCH (09:56)
[2020-07-25] MEDS: FAMOTIDINE INJ/PF 20 MG/2 ML SDV IV SCH ×2 (09:56→21:27)
--- NOTE | 2020-07-25 11:22 | PDOC PROGRESS REPORT ---
Subjective Date:: 07/25/20 Reason For Visit: APPENDICITIS Physical Exam Vital Signs: Temp Pulse Resp BP Pulse Ox 98.0 F 87 18 96/42 L 97 07/24/20 22:00 07/25/20 07:00 07/24/20 04:00 07/24/20 04:00 07/24/20 04:00 Intake & Output 07/24/20 07/25/20 07/26/20 06:59 06:59 06:59 Intake Total 5150 1550 Output Total 1980 560 Balance 3170 990 Weight 73.6 kg 74.7 kg Results Laboratory Results: 07/25/20 06:33 07/25/20 06:33 07/25/20 07/25/20 06:33 06:33 WBC 9.6 RBC 3.99 L Hgb 12.5 L Hct 35.1 L MCV 88 MCH 31.3 MCHC 35.6 RDW 12.6 Plt Count 151 Seg Neutrophils % 81.9 H Sodium 134.3 L Potassium 4.0 Chloride 101 Carbon Dioxide 26 Anion Gap 7 BUN 18 Creatinine 0.81 Est GFR ( Amer) > 60 Glucose 90 Calcium 7.9 L Total Bilirubin 2.1 H AST 23 Alkaline Phosphatase 66 Total Protein 5.5 L Albumin 2.9 L Impressions: Abdomen/Pelvis CT 07/23/20 11:20 IMPRESSION: Probable acute appendicitis with markedly dilated appendix and surrounding inflammatory change. Probable reactive distal small bowel wall thickening and cecal wall thickening. Probable gallstone although gallbladder wall thickening or pericholecystic edema cannot be excluded. Correlation with ultrasound is recommended. Mild periportal edema etiology of this is uncertain. Again ultrasound correlation is recommended. Chest X-Ray 07/23/20 17:48 IMPRESSION: NO ACUTE RADIOGRAPHIC FINDING IN THE CHEST. Assessment & Plan - Diagnosis (1) Appendicitis Qualifiers: Appendicitis type: acute appendicitis Is this a current diagnosis for this admission?: Yes - Time Anticipated Discharge Disposition: Home, Self Care Anticipated Discharge Timeframe: within 48 hours - Plan Summary Plan Summary: 20-year-old male status post laparoscopic appendectomy for acute appendicitis. Patient reports nausea and vomiting overnight. He denies any flatus at this time. This may be consistent with a developing ileus. I have recommended the patient get out of bed and ambulate. His HAILEY is productive of serous fluid. Plan for discharge once he is tolerating a diet, and passing flatus. COVID-19 treatment per hospitalist service.
[2020-07-25] MEDS ORDERED: PROMETHAZINE HCL INJ 25 MG/1 ML VIAL IV ONE (12:30)
--- NOTE | 2020-07-25 16:21 | PDOC PROGRESS REPORT ---
Subjective Date:: 07/25/20 Subjective:: KSENIA SAMAYOA is a 20 year old male without significant past medical history who was admitted 07/23/2020 to the surgical list service for acute appendicitis incidentally found to have COVID-19. Patient was seen on morning rounds. He is found resting in bed, comfortably, on room air. He does continue to have abdominal discomfort; slight improvement. Although, he has not yet passed gas or had a bowel movement. Now with nausea and vomiting. T-max 100.4/48 hours. He denies chest pain, palpitations, dyspnea, orthopnea, cough. He does complain of fatigue but denies generalized weakness, malaise, and body aches. He has no other questions or concerns at this time. No concerns per nursing. Reason For Visit: APPENDICITIS Physical Exam Vital Signs: Temp Pulse Resp BP Pulse Ox 98.0 F 85 18 96/42 L 97 07/25/20 10:00 07/25/20 14:00 07/24/20 04:00 07/24/20 04:00 07/24/20 04:00 Intake & Output 07/24/20 07/25/20 07/26/20 06:59 06:59 06:59 Intake Total 5150 1550 830 Output Total 1980 560 Balance 3170 990 830 Weight 73.6 kg 74.7 kg General appearance: PRESENT: no acute distress, cooperative, well-developed, well-nourished Head exam: PRESENT: atraumatic, normocephalic Eye exam: PRESENT: conjunctiva pink, EOMI, PERRLA. ABSENT: scleral icterus Mouth exam: PRESENT: moist, tongue midline Respiratory exam: PRESENT: clear to auscultation tejinder, symmetrical, unlabored. ABSENT: rales, rhonchi, wheezes Cardiovascular exam: PRESENT: RRR. ABSENT: diastolic murmur, rubs, systolic murmur Vascular exam: PRESENT: normal capillary refill GI/Abdominal exam: PRESENT: hypoactive bowel sounds, soft, tenderness. ABSENT: distended, guarding, mass, organolmegaly, rebound Rectal exam: PRESENT: deferred Extremities exam: PRESENT: full ROM. ABSENT: calf tenderness, clubbing, pedal edema Musculoskeletal exam: PRESENT: ambulatory Neurological exam: PRESENT: alert, awake, oriented to person, oriented to place, oriented to time, oriented to situation, CN II-XII grossly intact. ABSENT: motor sensory deficit Psychiatric exam: PRESENT: appropriate affect, normal mood. ABSENT: homicidal ideation, suicidal ideation Skin exam: PRESENT: dry, intact, warm. ABSENT: cyanosis, rash Results Laboratory Results: 07/25/20 06:33 07/25/20 06:33 07/25/20 07/25/20 06:33 06:33 WBC 9.6 RBC 3.99 L Hgb 12.5 L Hct 35.1 L MCV 88 MCH 31.3 MCHC 35.6 RDW 12.6 Plt Count 151 Seg Neutrophils % 81.9 H Sodium 134.3 L Potassium 4.0 Chloride 101 Carbon Dioxide 26 Anion Gap 7 BUN 18 Creatinine 0.81 Est GFR ( Amer) > 60 Glucose 90 Calcium 7.9 L Total Bilirubin 2.1 H AST 23 Alkaline Phosphatase 66 Total Protein 5.5 L Albumin 2.9 L Impressions: Abdomen/Pelvis CT 07/23/20 11:20 IMPRESSION: Probable acute appendicitis with markedly dilated appendix and surrounding inflammatory change. Probable reactive distal small bowel wall thickening and cecal wall thickening. Probable gallstone although gallbladder wall thickening or pericholecystic edema cannot be excluded. Correlation with ultrasound is recommended. Mild periportal edema etiology of this is uncertain. Again ultrasound correlation is recommended. Chest X-Ray 07/23/20 17:48 IMPRESSION: NO ACUTE RADIOGRAPHIC FINDING IN THE CHEST. Assessment and Plan - Diagnosis (1) COVID-19 Is this a current diagnosis for this admission?: Yes Plan: Currently asymptomatic. COVID positive D-dimer, ferritin, CRP, LDH not checked as all will be elevated in setting of acute appendicitis. Continue DVT prophylaxis Lovenox as was initiated by surgery. Provide supplemental oxygen as needed maintain saturations greater than 89%. As needed nebulizer treatments. Once tolerating oral medications, will utilize [facility] [place] protocol for Ivermectin 12 mg daily x2 doses with zinc, vitamin D, vitamin C, and melatonin supplementation. Hold on steroids r/t appendicitis. Encourage pulmonary toilet. Isolation precautions. (2) Hyponatremia Is this a current diagnosis for this admission?: Yes Plan: Improved; 128.4-> 134.3 Likely secondary to dehydration. Continue IV fluids. Follow-up chemistry. (3) Sepsis Qualifiers: Sepsis type: sepsis due to unspecified organism Severe sepsis shock status: without septic shock Is this a current diagnosis for this admission?: Yes Plan: Resolved. WBC nml, VSS improved, afebrile overnight, lactic acid acidosis is resolved. Multifactorial secondary to acute appendicitis and COVID-19. Sepsis, present on arrival, evidenced by fever, tachycardia, tachypnea, leukopenia, liver dysfunction with elevated bilirubin, and poor capillary refill/mottled appearance. Lactic acid pending. Patient has already received IV fluid resuscitation by ED provider. Blood cultures negative at 24 hours Continue IV Zosyn. Continuing on maintenance fluids. (4) Appendicitis Qualifiers: Appendicitis type: acute appendicitis Is this a current diagnosis for this admission?: Yes Plan: Plan per Surgery. (5) Leukopenia Qualifiers: Leukopenia type: lymphocytopenia Qualified Code(s): D72.810 - Lymphocytopenia Is this a current diagnosis for this admission?: Yes Plan: Resolved; WBC 1.5-> 10.6-> 9.6 Likely secondary to sepsis related to acute appendicitis and COVID 19. Denies prior malignancy or immune defficiency illnesses. HIV negative. Cultures and antibiotics as above. Follow CBC. (6) Hypokalemia Is this a current diagnosis for this admission?: Yes Plan: Resolved. Secondary to poor oral intake and GI losses. Follow-up chemistry. (7) Hyperglycemia Is this a current diagnosis for this admission?: Yes Plan: Resolved. Likely r/t related to acute infectious process. A1c 4.2 - Time Time Spent with patient: 25-34 minutes Medications reviewed and adjusted accordingly: Yes Anticipated Discharge Disposition: Home, Self Care Anticipated Discharge Timeframe: TBD
[2020-07-25] MEDS: PROMETHAZINE HCL INJ 25 MG/1 ML VIAL IV PRN ×2 (17:09→22:34)
[2020-07-26] MEDS: PIPERACILLIN SODIUM/TAZOBACTAM 3.375 GM in NORMAL SALINE 100 ML IV SCH (02:20)
[2020-07-26] MEDS: KETOROLAC TROMETHAMINE INJ/PF 30 MG/1 ML SDV IV SCH (05:05)
[2020-07-26] MEDS: NORMAL SALINE 1000 ML 1,000 ML IV PRN (05:06)
[2020-07-26 06:41] LABS: ABSOLUTE EOSINOPHILS # (AUTO) 0.1 10^3/uL (0.0-0.6); ABSOLUTE LYMPHOCYTES (AUTO) 0.8 10^3/uL (0.5-4.7); ABSOLUTE MONOCYTES (AUTO) 0.6 10^3/uL (0.1-1.4); ABSOLUTE NEUT (AUTO) 4.7 10^3/uL (1.7-8.2); BASOPHILS % (AUTO) 0.6 % (0-2); EOSINOPHILS % (AUTO) 1.7 % (0-6); HEMATOCRIT 32.3 % (37.9-51.0); HEMOGLOBIN 11.4 g/dL (13.5-17.0); LYMPHOCYTES % (AUTO) 12.2 % (13-45); MEAN CORPUSCULAR HEMOGLOBIN 30.9 pg (27.0-33.4); MEAN CORPUSCULAR HGB CONC 35.3 g/dL (32.0-36.0); MEAN CORPUSCULAR VOLUME 87 fl (80-97); MONOCYTES % (AUTO) 9.8 % (3-13); PLATELET COUNT 162 10^3/uL (150-450); RED CELL DISTRIBUTION WIDTH 12.5 % (11.5-14.0); SEGMENTED NEUTROPHILS % (AUTO) 75.7 % (42-78); TOTAL CELLS COUNTED % (AUTO) 100 %; WHITE BLOOD COUNT 6.2 10^3/uL (4.0-10.5)
[2020-07-26 07:07] LABS: ANION GAP 6 (5-19); BLOOD UREA NITROGEN 14 mg/dL (7-20); CALCIUM 7.5 mg/dL (8.4-10.2); CARBON DIOXIDE 23 mmol/L (22-30); CHLORIDE 102 mmol/L (98-107); GLUCOSE 110 mg/dL (75-110); POTASSIUM 3.3 mmol/L (3.6-5.0)
[2020-07-26 08:00] VITALS: BP 117/75
[2020-07-26] MEDS ORDERED: NORMAL SALINE 1000 ML 1,000 ML IV PRN (08:39)
[2020-07-26] MEDS ORDERED: POTASSI CL 20 MEQ/50 ML RIDER 20 MEQ/50 ML RTUPB IV SCH (09:00)
[2020-07-26] MEDS: ENOXAPARIN SODIUM INJ 40 MG/0.4 ML DISP.SYRIN SUBCUT SCH (09:33)
[2020-07-26] MEDS: DOCUSATE SODIUM 100 MG CAPSULE PO SCH (09:33)
[2020-07-26] MEDS: CHOLECALCIFEROL (D3) 1,000 UNIT (25 MCG) TABLET PO SCH (09:36)
[2020-07-26] MEDS: FAMOTIDINE INJ/PF 20 MG/2 ML SDV IV SCH (09:36)
[2020-07-26] MEDS: ZINC SULFATE 220 MG CAPSULE PO SCH (09:36)
[2020-07-26] MEDS: ASCORBIC ACID 500 MG TABLET PO SCH (09:36)
--- NOTE | 2020-07-26 10:10 | PDOC DISCHARGE SUMMARY ---
General - Admit/Disc Date/PCP Admission Date/Primary Care Provider: 07/23/20 14:41 Discharge Date: 07/26/20 - Discharge Diagnosis Final Diagnosis: Perforated appendicitis - Assessment Summary: This is a 20-year-old male who was admitted with diagnosis of perforated appendicitis he was taken to the operating room where he underwent a laparoscopic appendectomy. Postoperatively had a routine benign postop course he was continued on IV antibiotics secondary to the perforation by postop day 3 he is tolerating a soft diet having bowel movements and return of bowel function his Jayme-Davey drain has been removed today and is ready for discharge home. He will be given a follow-up appointment in 7 to 10 days in surgical clinic in 1 week course of oral antibiotics. - Additional Information Resuscitation Status: Full Code Discharge Diet: As Tolerated Discharge Activity: Balance Activity w/Rest, No tub bath Referrals: RAQUEL FLORES MD [ACTIVE STAFF] - Prescriptions: Ciprofloxacin HCl [Cipro 500 mg Tablet] 500 mg PO Q12 #14 tablet Hydrocodone/Acetaminophen [Wilson 10-325 mg Tablet] 1 tab PO Q6HP PRN #10 tablet PRN Reason: Ondansetron [Zofran Odt 4 mg Tablet] 4 mg PO Q4HP PRN #15 tab.rapdis PRN Reason: Home Medications: Ciprofloxacin HCl [Cipro 500 mg Tablet] 500 mg PO Q12 #14 tablet 07/26/20 Hydrocodone/Acetaminophen [Wilson 10-325 mg Tablet] 1 tab PO Q6HP PRN #10 tablet 07/26/20 Ondansetron [Zofran Odt 4 mg Tablet] 4 mg PO Q4HP PRN #15 tab.rapdis 07/26/20 History of Present Illiness History of Present Illness: KSENIA SAMAYOA is a 20 year old male Physical Exam Vital Signs: Temp Pulse Resp BP Pulse Ox 99.5 F 87 18 117/75 100 07/26/20 07:39 07/26/20 07:39 07/26/20 07:39 07/26/20 07:39 07/26/20 07:39 Intake & Output 07/25/20 07/26/20 07/27/20 06:59 06:59 06:59 Intake Total 1550 3750 680 Output Total 560 1570 Balance 990 2180 680 Weight 74.7 kg 74.7 kg Results Laboratory Results: WBC 6.2 10^3/uL (4.0-10.5) 07/26/20 06:09 RBC 3.70 10^6/uL (4.35-5.55) L 07/26/20 06:09 Hgb 11.4 g/dL (13.5-17.0) L 07/26/20 06:09 Hct 32.3 % (37.9-51.0) L 07/26/20 06:09 MCV 87 fl (80-97) 07/26/20 06:09 MCH 30.9 pg (27.0-33.4) 07/26/20 06:09 MCHC 35.3 g/dL (32.0-36.0) 07/26/20 06:09 RDW 12.5 % (11.5-14.0) 07/26/20 06:09 Plt Count 162 10^3/uL (150-450) 07/26/20 06:09 Lymph % (Auto) 12.2 % (13-45) L 07/26/20 06:09 Hanson % (Auto) 9.8 % (3-13) 07/26/20 06:09 Eos % (Auto) 1.7 % (0-6) 07/26/20 06:09 Baso % (Auto) 0.6 % (0-2) 07/26/20 06:09 Absolute Neuts (auto) 4.7 10^3/uL (1.7-8.2) 07/26/20 06:09 Absolute Lymphs (auto) 0.8 10^3/uL (0.5-4.7) 07/26/20 06:09 Absolute Monos (auto) 0.6 10^3/uL (0.1-1.4) 07/26/20 06:09 Absolute Eos (auto) 0.1 10^3/uL (0.0-0.6) 07/26/20 06:09 Absolute Basos (auto) 0.0 10^3/uL (0.0-0.2) 07/26/20 06:09 Total Counted 100 07/24/20 06:04 Seg Neutrophils % 75.7 % (42-78) 07/26/20 06:09 Seg Neuts % (Manual) 79 % (42-78) H 07/24/20 06:04 Band Neutrophils % 15 % (3-5) H D 07/24/20 06:04 Lymphocytes % (Manual) 2 % (13-45) L 07/24/20 06:04 Monocytes % (Manual) 3 % (3-13) 07/24/20 06:04 Eosinophils % (Manual) 0 % (0-6) 07/24/20 06:04 Basophils % (Manual) 1 % (0-2) 07/24/20 06:04 Abs Neuts (Manual) 10.0 10^3/uL (1.7-8.2) H 07/24/20 06:04 Abs Lymphs (Manual) 0.2 10^3/uL (0.5-4.7) L 07/24/20 06:04 Abs Monocytes (Manual) 0.3 10^3/uL (0.1-1.4) 07/24/20 06:04 Absolute Eos (Manual) 0.0 10^3/uL (0.0-0.6) 07/24/20 06:04 Abs Basophils (Manual) 0.1 10^3/uL (0.0-0.2) 07/24/20 06:04 Nucleated RBCs 2 /100 WBC (0) 07/23/20 09:22 Toxic Granulation SLIGHT 07/24/20 06:04 Large Platelets PRESENT 07/23/20 09:22 Giant Platelets PRESENT 07/23/20 09:22 Platelet Comment DECREASED 07/24/20 06:04 Poikilocytosis SLIGHT 07/24/20 06:04 Ovalocytes SLIGHT 07/24/20 06:04 Rufe Cells SLIGHT 07/24/20 06:04 RBC Morph Comment NORMO-CYTIC/CHROMIC 07/23/20 09:22 Sodium 131.2 mmol/L (137-145) L 07/26/20 06:09 Potassium 3.3 mmol/L (3.6-5.0) L 07/26/20 06:09 Chloride 102 mmol/L (98-107) 07/26/20 06:09 Carbon Dioxide 23 mmol/L (22-30) 07/26/20 06:09 Anion Gap 6 (5-19) 07/26/20 06:09 BUN 14 mg/dL (7-20) 07/26/20 06:09 Creatinine 0.66 mg/dL (0.52-1.25) 07/26/20 06:09 Est GFR ( Amer) > 60 (>60) 07/26/20 06:09 Est GFR (MDRD) Non-Af > 60 (>60) 07/26/20 06:09 Glucose 110 mg/dL (75-110) 07/26/20 06:09 Hemoglobin A1c % 4.2 % (4.7-6.0) L 07/24/20 06:04 Lactic Acid 1.3 mmol/L (0.7-2.1) 07/24/20 06:04 Calcium 7.5 mg/dL (8.4-10.2) L 07/26/20 06:09 Total Bilirubin 2.1 mg/dL (0.2-1.3) H 07/25/20 06:33 Direct Bilirubin 1.2 mg/dL (0.0-0.4) H 07/25/20 06:33 Neonat Total Bilirubin Not Reportable 07/25/20 06:33 Neonat Direct Bilirubin Not Reportable 07/25/20 06:33 Neonat Indirect Bili Not Reportable 07/25/20 06:33 AST 23 U/L (17-59) 07/25/20 06:33 ALT 12 U/L (<50) 07/25/20 06:33 Alkaline Phosphatase 66 U/L (38-126) 07/25/20 06:33 Total Protein 5.5 g/dL (6.3-8.2) L 07/25/20 06:33 Albumin 2.9 g/dL (3.5-5.0) L 07/25/20 06:33 TSH 0.06 uIU/mL (0.47-4.68) L 07/24/20 06:04 COVID-19 Source See comment 07/23/20 10:56 COVID-19 (NICHOLAS) DETECTED (Not Detect) A 07/23/20 10:56 HIV 1&2 Antibody NEGATIVE (NEGATIVE) 07/23/20 21:10 Influenza A (RT-PCR) NEGATIVE (NEGATIVE) 07/23/20 15:09 Influenza B (RT-PCR) NEGATIVE (NEGATIVE) 07/23/20 15:09 RSV (RT-PCR) NEGATIVE (NEGATIVE) 07/23/20 15:09 SARS-CoV-2 Rap RNA(RT-PCR) POSITIVE (NEGATIVE) 07/23/20 15:09 Slides for Path Review PATHOLOGIST REVIEWED 07/23/20 09:22 Impressions: Abdomen/Pelvis CT 07/23/20 11:20 IMPRESSION: Probable acute appendicitis with markedly dilated appendix and s urrounding inflammatory change. Probable reactive distal small bowel wall thickening and cecal wall thickening. Probable gallstone although gallbladder wall thickening or pericholecystic edema cannot be excluded. Correlation with ultrasound is recommended. Mild periportal edema etiology of this is uncertain. Again ultrasound correlation is recommended. Chest X-Ray 07/23/20 17:48 IMPRESSION: NO ACUTE RADIOGRAPHIC FINDING IN THE CHEST.
[2020-07-28 11:35] LABS: PATH REVIEW PATHOLOGIST REVIEWED
== END 2020-07-26 11:40 | disposition home or self-care (01) | DRG 853 ==
LOC: ER 08:46 → EH 14:41 → 3S 19:25
PROVIDERS: ATTEND Registered Nurse
PROC: 0DTJ4ZZ Resection of Appendix, Percutaneous Endoscopic Approach (ICD-10-PCS; principal; 2020-07-23 17:00)
DX: A41.89 Other specified sepsis (principal); U07.1 COVID-19; K35.30 Acute appendicitis with localized peritonitis, without perforation or gangrene; E87.1 Hypo-osmolality and hyponatremia; E87.6 Hypokalemia; R73.9 Hyperglycemia, unspecified; D72.810 Lymphocytopenia
CPT/HCPCS: 36415; 71045; 74177; 80048; 80053; 80076; 83036; 83605; 840; 84443; 85025; 86701; 87040; 87635; 88304; 96361; 96365; 96375; 96376; 99140; 99285; 0241U; C9803; J0131; J0330; J1100; J1170; J1650; J1885; J2250; J2270; J2370; J2405; J2543; J2550; J2704; J2710; J3010; J3480; J3490; J7030; J7050; J7120; S0028